=== PATIENT | male | born 1955 | race Caucasian/White ===

== ENCOUNTER 2019-11-23 14:57 | Outpatient (CLI) | payer MEDICARE ==
[~2019-11-23 14:57] MED LIST: Iopamidol-370 76% 500 ML 1 ML ONE
--- NOTE | 2019-11-23 16:00 | CT ---
CT abdomen and pelvis without and with IV contrast HISTORY: Hematuria. FINDINGS: Each renal collecting system, ureter, and urinary bladder are decompressed without stone ev ident. No filling defects are apparent within the urinary system on the delayed images. Prostate gland protrudes into the bladder base. No enhancing renal lesions. Parenchymal scarring is evident at the lung bases. There is calcification of the coronary arteries. P rominent degenerative changes of the lumbar spine with prominent multilevel central canal and foraminal stenoses. Central canal stenosis is most severe at the T10-11 level. There is a small hiata l hernia. Hyperdense stones in the dependent portion of the gallbladder lumen. Metallic shrapnel within the rig ht posterior muscles and retroperitoneum. There are postoperative changes of the bowel. No evidence of obstruction. A small loop of nonobstructed small bowel extends through a supraumbilical anterior a bdominal wall hernia just to the right of midline. IMPRESSION: No urinary tract abnormalities are demonstrated to explain hematuria. Atherosclerosis. Cholelithiasis. Prominent degenerative changes of the spine with severe central canal stenosis at the T10-11 level. Supraumbilical anterior abdominal wall hernia containing a nonobstructed loop of small bowel.
== END 2019-11-23 14:58 | disposition home or self-care (01) ==
LOC: BICCT 14:57
PROVIDERS: ATTEND Urology
DX: R31.21 Asymptomatic microscopic hematuria (principal); I70.90 Unspecified atherosclerosis; K80.20 Calculus of gallbladder without cholecystitis without obstruction; M47.814 Spondylosis without myelopathy or radiculopathy, thoracic region; M48.04 Spinal stenosis, thoracic region; K42.9 Umbilical hernia without obstruction or gangrene
CPT/HCPCS: 74178; 82565; Q9967

== ENCOUNTER 2022-11-29 09:06 | Outpatient (CLI) | payer MEDICARE | END 2022-11-29 09:07 | disposition home or self-care (01) | LOC: NM 09:06 | PROVIDERS: ATTEND Urology | DX: C61 Malignant neoplasm of prostate (principal) | CPT/HCPCS: 78306; A9503 ==

== ENCOUNTER 2023-03-16 14:18 | Outpatient (CLI) | payer MEDICARE | END 2023-03-16 14:19 | disposition home or self-care (01) | LOC: RAD 14:18 | PROVIDERS: ATTEND Thoracic Surgery (Cardiothoracic Vascular Surgery) | DX: I25.10 Atherosclerotic heart disease of native coronary artery without angina pectoris (principal); J90 Pleural effusion, not elsewhere classified; J98.11 Atelectasis; Z95.1 Presence of aortocoronary bypass graft | CPT/HCPCS: 71045 ==